=== PATIENT | female | born 1980 | race Caucasian/White ===

== ENCOUNTER 2018-07-24 12:41 | Emergency (ER) | payer OTHER ==
[~2018-07-24] VITALS: Ht 170.2 cm; Wt 65.8 kg
[~2018-07-24 12:41] MED LIST: DICLOFENAC SODI75 MG PO; IBUPROFEN600 MG PO; LORTAB 7.5-3251 EACH PO; MEDROL4 M1 PO; NORCO 5-325 TA1 EACH PO
--- OUTSIDE RECORDS SUMMARY | 2018-07-24 12:46 | XMS ---
PreManage Notification: TODD CLAY Security Preprint Analyst Events No recent Security Events currently on file CRITERIA MET - [facility] - 2 Visits in 30 Days CARE PROVIDERS There are no care providers on record at this time. Alaina has no Care Guidelines for this patient. Micheal VISIT COUNT (12 MO.) 2 [facility] [place] [facility]. TOTAL 2 NOTE: Visits indicate total known visits. ED/C VISIT TRACKING (12 MO.) 07/24/2018 12:41 [facility] TYPE: Emergency COMPLAINT: - ABD PAIN 06/27/2018 12:24 [facility] TYPE: Emergency COMPLAINT: - ABD PAIN DIAGNOSES: - Nicotine dependence, unspecified, uncomplicated - Allergy status to penicillin - Lower abdominal pain, unspecified - Allergy status to other drugs, medicaments and biological substances status - Unspecified ovarian cyst, left side INPATIENT VISIT TRACKING (12 MO.) No inpatient visits to display in this time frame [email or web address]
[2018-07-24] MEDS ORDERED: NORCO 5-325 TA1 EACH PO (14:49)
== END 2018-07-24 15:05 | disposition home or self-care (01) ==
LOC: ED 12:41
DX: N83.201 Unspecified ovarian cyst, right side (principal); F17.200 Nicotine dependence, unspecified, uncomplicated; Z88.0 Allergy status to penicillin; Z88.8 Allergy status to other drugs, medicaments and biological substances; Z79.899 Other long term (current) drug therapy
CPT/HCPCS: 76830; 76856; 81001; 84703; 85025; 96374; 99284; 99406; J1885

== ENCOUNTER 2020-11-26 23:53 | Emergency (ER) | payer SELFPAY ==
[~2020-11-26] VITALS: Ht 170.2 cm; Wt 59.0 kg
[2020-11-27] MEDS ORDERED: WELLBUTRIN SR150 MG PO (00:16)
[2020-11-27] MEDS ORDERED: ZOFRAN4 MG PO (01:52)
== END 2020-11-27 02:10 | disposition home or self-care (01) ==
LOC: ED 23:53
DX: K29.00 Acute gastritis without bleeding (principal); F17.200 Nicotine dependence, unspecified, uncomplicated; Z88.0 Allergy status to penicillin; Z88.8 Allergy status to other drugs, medicaments and biological substances
CPT/HCPCS: 80053; 81001; 83690; 84703; 85025; 96374; 96375; 96376; 99284-25; J2405; J2765; J7030